=== PATIENT | female | born 1955 | race Native Hawaiian/Other Pacific Islander ===

== ENCOUNTER 2020-09-24 16:29 | Emergency (ER) | payer OTHER ==
[~2020-09-24] VITALS: Ht 167.6 cm; Wt 77.1 kg
[2020-09-24 16:55] VITALS: BP 127/62; TEMP 97.9
== END 2020-09-24 17:46 | disposition home or self-care (01) ==
LOC: ED 16:29
DX: L30.8 Other specified dermatitis (principal); S16.1XXA Strain of muscle, fascia and tendon at neck level, initial encounter
CPT/HCPCS: 99282